=== PATIENT | male | born 1985 | race Caucasian/White ===

== ENCOUNTER → 2020-11-09 11:22 | Outpatient (BNVA) | payer OTHER, SELFPAY | PROVIDERS: Visit Provider Nurse Practitioner Family | DX: Z20.822 Contact with and (suspected) exposure to COVID-19 (principal) | CPT/HCPCS: 87635 ==

== ENCOUNTER 2025-02-07 16:15 | Emergency (ER) | payer SELFPAY ==
--- NOTE | 2025-02-07 16:19 | ECG_ITS ---
[facility] Test Date: 2025-02-07 Pat Name: Nadeem Salazar Department: Room: Gender: Male Rail Transit Operator: : 1985 Requested By: Lars Cowan Order Number: [id number] Amy MD: Juan Pablo Balderrama M.D. Measurements Intervals [place] Rate: 78 P: 67 [place]: 150 QRS: 53 QRSD: 101 T: 65 QT: 330 QTc: 376 Interpretive Statements SINUS RHYTHM No previous ECG available for comparison Electronically Signed On 02-08-2025 13:04:46 CDT by Juan Pablo Balderrama M.D. [id number]
--- NOTE | 2025-02-07 16:19 | XRR_ITS ---
PROCEDURE INFORMATION: Exam: XR Chest Exam date and time: 02/07/2025 4:34 PM Age: 39 years old Clinical indication: Pain; Angina pectoris; Additional info: Cp TECHNIQUE: Imaging protocol: Radiologic exam of the chest. Views: 1 view. COMPARISON: No relevant prior studies available. FINDINGS: Lungs: Unremarkable. No consolidation. Pleural spaces: Unremarkable. No pleural effusion. No pneumothorax. Heart/Mediastinum: Unremarkable. No cardiomegaly. Bones/joints: Unremarkable. XR/XR chest 1V portable [id number] IMPRESSION: No acute findings.
--- OUTSIDE RECORDS SUMMARY | 2025-02-07 16:20 | XMS_ITS | Encounter Summary ---
Author Organization [employer] [facility] Address [address] [place] [address] Care Team Providers Care Pcts Name Role Phone Unavailable Primary Care Provider Unavailabl e Encounter Details Date Type Department Care Team (Latest Contact Info) Description 08/12/1999 Outpatient Historical HIS [facility] Julio Elliott MD [address] [place] [phone] Acute sinusitis, unspecified (Primary Dx) Social History Tobacco Use Types Packs/Day Years Used Date Smoking Tobacco: Never Assessed Sex and Gender Information Value Date Recorded Sex Assigned at Not on file 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
--- OUTSIDE RECORDS SUMMARY | 2025-02-07 16:20 | XMS_ITS | Encounter Summary ---
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
--- OUTSIDE RECORDS SUMMARY | 2025-02-07 16:20 | XMS_ITS | Encounter Summary ---
Author Organization [facility] Address [address] [place] [address] Care Team Providers Care Otm Consultant Name Role Phone Unavailable Primary Care Provider Unavailabl e Encounter Details Date Type Department Care Team (Latest Contact Info) Description 07/08/1997 Outpatient Historical [facility] [place] [address] [place] [address] Chalo Torres MD NO ADDRESS ON FILE Contusion face/scalp/nck (Primary Dx) Social History Tobacco Use Types Packs/Day Years Used Date Smoking Tobacco: Never Assessed Sex and Gender Information Value Date Recorded Sex Assigned at Not on file 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
--- OUTSIDE RECORDS SUMMARY | 2025-02-07 16:20 | XMS_ITS | Encounter Summary ---
Author Organization [employer] [facility] Address [address] [place] [address] Care Team Providers Care Etl Developer Name Role Phone Unavailable Primary Care Provider Unavailabl e Encounter Details Date Type Department Care Team (Latest Contact Info) Description 01/18/2000 Outpatient Historical HIS [facility] Julio Elliott MD [address] [place] [phone] Other general medical examination for administrative purposes (Primary Dx) Social History Tobacco Use Types Packs/Day Years Used Date Smoking Tobacco: Never Assessed Sex and Gender Information Value Date Recorded Sex Assigned at Not on file 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
--- OUTSIDE RECORDS SUMMARY | 2025-02-07 16:20 | XMS_ITS | Encounter Summary ---
Author Organization [facility] Address [address] [place] [address] Care Team Providers Care Thermostat Maker Name Role Phone Unavailable Primary Care Provider Unavailabl e Encounter Details Date Type Department Care Team (Latest Contact Info) Description 04/25/2001 Outpatient Historical [facility] Dermatology- [facility] Priscila [address] [place] [address] Alfredito Conti MD NO ADDRESS ON FILE ACNE NEC (Primary Dx) Social History Tobacco Use Types Packs/Day Years Used Date Smoking Tobacco: Never Assessed Sex and Gender Information Value Date Recorded Sex Assigned at Not on file 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
--- OUTSIDE RECORDS SUMMARY | 2025-02-07 16:20 | XMS_ITS | Encounter Summary ---
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
--- OUTSIDE RECORDS SUMMARY | 2025-02-07 16:20 | XMS_ITS | Encounter Summary ---
Author Organization [employer] [facility] Address [address] [place] [address] Care Team Providers Care Trouble Clerk Name Role Phone Unavailable Primary Care Provider Unavailabl e Encounter Details Date Type Department Care Team (Latest Contact Info) Description 04/09/2001 Outpatient Historical HIS [facility] Julio Elliott MD [address] [place] [phone] COUGH (Primary Dx); ACUTE SINUSITIS NOS; PRURITIC DISORDER NOS Social History Tobacco Use Types Packs/Day Years Used Date Smoking Tobacco: Never Assessed Sex and Gender Information Value Date Recorded Sex Assigned at Not on file 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
--- OUTSIDE RECORDS SUMMARY | 2025-02-07 16:20 | XMS_ITS | Encounter Summary ---
Author Organization [facility] Address [address] [place] [address] Care Team Providers Care Edge Finisher Name Role Phone Unavailable Primary Care Provider Unavailabl e Encounter Details Date Type Department Care Team (Latest Contact Info) Description 02/10/1998 Outpatient Historical [facility] Pediatrics-[facility] [address] [place] [address] Chalo Torres MD NO ADDRESS ON FILE Routine medical exam (Primary Dx) Social History Tobacco Use Types Packs/Day Years Used Date Smoking Tobacco: Never Assessed Sex and Gender Information Value Date Recorded Sex Assigned at Not on file 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
--- OUTSIDE RECORDS SUMMARY | 2025-02-07 16:20 | XMS_ITS | Encounter Summary ---
Author Organization [employer] [facility] Address [address] [place] [address] Care Team Providers Care Transfer Table Operator Name Role Phone Unavailable Primary Care Provider Unavailabl e Encounter Details Date Type Department Care Team (Latest Contact Info) Description 06/07/1999 Outpatient Historical HIS [facility] Julio Elliott MD [address] [place] [phone] Other and unspecified noninfectious gastroenteritis and colitis(558.9) (Primary Dx) Social History Tobacco Use Types Packs/Day Years Used Date Smoking Tobacco: Never Assessed Sex and Gender Information Value Date Recorded Sex Assigned at Not on file 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
--- OUTSIDE RECORDS SUMMARY | 2025-02-07 16:20 | XMS_ITS | Encounter Summary ---
Author Organization [employer] [facility] Address [address] [place] [address] Care Team Providers Care Malt Specifications Control Assistant Name Role Phone Unavailable Primary Care Provider Unavailabl e Encounter Details Date Type Department Care Team (Latest Contact Info) Description 03/13/2001 Outpatient Historical HIS [facility] Julio Elliott MD [address] [place] [phone] Bronchitis, not specified as acute or chronic (Primary Dx) Social History Tobacco Use Types Packs/Day Years Used Date Smoking Tobacco: Never Assessed Sex and Gender Information Value Date Recorded Sex Assigned at Not on file Legal Sex Male 6:00 AM [facility] SHIFT LEAD Gender Identity Not on file Sexual Orientation Not on file documented as of this encounter Plan of Treatment Not on file documented as of this encounter Visit Diagnoses Diagnosis Bronchitis, not specified as acute or chronic- Primary documented in this encounter
--- OUTSIDE RECORDS SUMMARY | 2025-02-07 16:20 | XMS_ITS | Encounter Summary ---
Author Organization [employer] [facility] Address [address] [place] [address] Care Team Providers Care Bearing Inspector Name Role Phone Unavailable Primary Care Provider Unavailabl e Encounter Details Date Type Department Care Team (Latest Contact Info) Description 05/12/1999 Outpatient Historical HIS [facility] Christiano Baez NO ADDRESS ON FILE Unspecified viral infection, in conditions classified elsewhere and of unspecified site (Primary Dx); Acute upper respiratory infections of unspecified site Social History Tobacco Use Types Packs/Day Years Used Date Smoking Tobacco: Never Assessed Sex and Gender Information Value Date Recorded Sex Assigned at Not on file 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
--- OUTSIDE RECORDS SUMMARY | 2025-02-07 16:20 | XMS_ITS | Encounter Summary ---
Author Organization [facility] Address [address] [place] [address] Care Team Providers Care Logging Shovel Operator Name Role Phone Unavailable Primary Care Provider Unavailabl e Encounter Details Date Type Department Care Team (Latest Contact Info) Description 07/26/2001 Outpatient Historical [facility] Dermatology- [facility] Prisc[address] [place] [address] Alfredito Conti MD NO ADDRESS ON FILE ACNE NEC (Primary Dx) Social History Tobacco Use Types Packs/Day Years Used Date Smoking Tobacco: Never Assessed Sex and Gender Information Value Date Recorded Sex Assigned at Not on file 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
--- OUTSIDE RECORDS SUMMARY | 2025-02-07 16:20 | XMS_ITS | Encounter Summary ---
Author Organization [facility] Address [address] [place] [address] Care Team Providers Care Brass Roller Name Role Phone Unavailable Primary Care Provider Unavailabl e Encounter Details Date Type Department Care Team (Latest Contact Info) Description 09/17/1997 Outpatient Historical [facility] Pediatrics-[facility] [place] [address] [place] [address] Chalo Torres MD NO ADDRESS ON FILE Unspecified viral infection, in conditions classified elsewhere and of unspecified site (Primary Dx) Social History Tobacco Use Types Packs/Day Years Used Date Smoking Tobacco: Never Assessed Sex and Gender Information Value Date Recorded Sex Assigned at Not on file 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
--- OUTSIDE RECORDS SUMMARY | 2025-02-07 16:20 | XMS_ITS | Encounter Summary ---
Author Organization [employer] [facility] Address [address] [place] [address] Care Team Providers Care Narcotics And/Or Vice Detective Name Role Phone Unavailable Primary Care Provider Unavailabl e Encounter Details Date Type Department Care Team (Latest Contact Info) Description 01/01/1999 Outpatient Historical HIS [facility] Julio Elliott MD [address] [place] [phone] Other general medical examination for administrative purposes (Primary Dx) Social History Tobacco Use Types Packs/Day Years Used Date Smoking Tobacco: Never Assessed Sex and Gender Information Value Date Recorded Sex Assigned at Not on file 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
--- OUTSIDE RECORDS SUMMARY | 2025-02-07 16:20 | XMS_ITS | Encounter Summary ---
Author Organization [employer] [facility] Address [address] [place] [address] Care Team Providers Care Yard Supervisor Name Role Phone Unavailable Primary Care Provider Unavailabl e Encounter Details Date Type Department Care Team (Latest Contact Info) Description 06/13/2000 Outpatient Historical HIS [facility] Julio Elliott MD [address] [place] [phone] Acute pharyngitis (Primary Dx); Streptococcal sore throat Social History Tobacco Use Types Packs/Day Years Used Date Smoking Tobacco: Never Assessed Sex and Gender Information Value Date Recorded Sex Assigned at Not on file 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
--- OUTSIDE RECORDS SUMMARY | 2025-02-07 16:20 | XMS_ITS | Encounter Summary ---
Author Organization [employer] [place] [employer] [facility] Address [address] [place] [address] Care Team Providers Care Cigar Making Supervisor Name Role Phone Unavailable Primary Care Provider Unavailabl e Encounter Details Date Type Department Care Team (Latest Contact Info) Description 07/03/2001 Outpatient Historical HIS [facility] Julio Elliott MD [address] [place] [phone] OTHER HAMMER TOE (Primary Dx) Social History Tobacco Use Types Packs/Day Years Used Date Smoking Tobacco: Never Assessed Sex and Gender Information Value Date Recorded Sex Assigned at Not on file 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
--- OUTSIDE RECORDS SUMMARY | 2025-02-07 16:20 | XMS_ITS | Clinical Summary ---
Author Organization [facility] Address [address] [facility] [place] [address] Care Team Providers Care Political Research Scientist Name Role Phone Unavailable Primary Care Provider Unavailabl e Immunizations Immunization Administration Dates Next Due (M-M-R II/PRIORIX)(12 MO UP) MEASLES, MUMPS AND RUBELLA VIRUS VACCINE, 0.5 ML IM/SUBCUT 10/26/1991 (TDVAX)(7 YRS UP) TETANUS AN D DIPHTHERIA TOXOIDS, ADSORBED (2 LF OF TETANUS TOXOID AND 2 LF OF DIPHTHERIA TOXOID), 0.5ML (PF), IM 01/03/2003 Dt Dtp Dtap Vaccine 10/26/1991 Hepatitis B Vaccine 11/06/1996,05/02/1996,1995 IPV/OPV 10/26/1991 Influenza Seasonal Unspecifi ed Formulation IM 03/20/2001 Social History Tobacco Use Types Packs/Day Years Used Date Smoking Tobacco: Never Assessed Sex and Gender Information Value Date Recorded Sex Assigned at Not on file 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
--- OUTSIDE RECORDS SUMMARY | 2025-02-07 16:20 | XMS_ITS | Encounter Summary ---
Author Organization [employer] [facility] Address [address] [place] [address] Care Team Providers Care Laborer High Density Press Name Role Phone Unavailable Primary Care Provider Unavailabl e Encounter Details Date Type Department Care Team (Latest Contact Info) Description 06/07/2001 Outpatient Historical HIS [facility] Julio Elliott MD [address] [place] [phone] UNS ASTHMA WOSTATUS ASTHMATICUS (Primary Dx); BRONCHITIS NOS Social History Tobacco Use Types Packs/Day Years Used Date Smoking Tobacco: Never Assessed Sex and Gender Information Value Date Recorded Sex Assigned at Not on file 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
--- OUTSIDE RECORDS SUMMARY | 2025-02-07 16:20 | XMS_ITS | Encounter Summary ---
Author Organization [employer] [facility] Address [address] [place] [address] Care Team Providers Care International Logistics Manager Name Role Phone Unavailable Primary Care Provider Unavailabl e Encounter Details Date Type Department Care Team (Latest Contact Info) Description 03/16/2001 Outpatient Historical HIS [facility] Julio Elliott MD [address] [place] [phone] Bronchitis, not specified as acute or chronic (Primary Dx) Social History Tobacco Use Types Packs/Day Years Used Date Smoking Tobacco: Never Assessed Sex and Gender Information Value Date Recorded Sex Assigned at Not on file 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
--- OUTSIDE RECORDS SUMMARY | 2025-02-07 16:20 | XMS_ITS | Encounter Summary ---
Author Organization [employer] [facility] Address [address] [place] [address] Care Team Providers Care Cargo And Ramp Services Manager Name Role Phone Unavailable Primary Care Provider Unavailabl e Encounter Details Date Type Department Care Team (Latest Contact Info) Description 03/20/2001 Outpatient Historical HIS [facility] Julio Elliott MD [address] [place] [phone] BRONCHITIS NOS (Primary Dx); VACCINE FOR INFLUENZA Social History Tobacco Use Types Packs/Day Years Used Date Smoking Tobacco: Never Assessed Sex and Gender Information Value Date Recorded Sex Assigned at Not on file 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
--- OUTSIDE RECORDS SUMMARY | 2025-02-07 16:20 | XMS_ITS | Encounter Summary ---
Author Organization [employer] [facility] Address [address] [place] [address] Care Team Providers Care Solutions Architect Name Role Phone Unavailable Primary Care Provider Unavailabl e Encounter Details Date Type Department Care Team (Latest Contact Info) Description 04/23/2001 Outpatient Historical HIS [facility] Julio Elliott MD [address] [place] [phone] ACNE NEC (Primary Dx) Social History Tobacco Use Types Packs/Day Years Used Date Smoking Tobacco: Never Assessed Sex and Gender Information Value Date Recorded Sex Assigned at Not on file Legal Sex Male 6:00 AM BANQUET STEWARDESS Gender Identity Not on file Sexual Orientation Not on file documented as of this encounter Plan of Treatment Not on file documented as of this encounter Visit Diagnoses Diagnosis Other acne- Primary documented in this encounter
[2025-02-07 16:25] VITALS: BP 147/82; PULSE 77; RESP 14; TEMP 36.8; O2SAT 98; BMI 31.6
[2025-02-07 16:41] LABS: Hematocrit 43.3 % (37-53); Hemoglobin 14.40 g/dL (11.27-16.99); Mean Corpuscular HGB Conc 33.3 g/dL (30-55); Mean Corpuscular Hemoglobin 28.2 pg (27-33); Mean Corpuscular Volume 84.7 fl (82-101); Nucleated Red Blood Cells % 0 %; Platelet Count 207 10^3/cmm (157-399); Red Blood Count 5.11 10^6/uL (3.85-5.65); White Blood Count 7.98 10^3/uL (3.29-11.43)
[2025-02-07 16:58] LABS: Alanine Aminotransferase 30 U/L (0-41); Albumin Level 4.5 g/dL (3.5-5.2); Alkaline Phosphatase 66 U/L (40-130); Anion Gap 14.6 (5-19); Aspartate Amino Transferase 21 U/L (0-40); Blood Urea Nitrogen 13 mg/dL (6-20); Calcium 9.0 mg/dL (8.5-10.5); Carbon Dioxide 26 mmol/L (22-29); Chloride 105 mmol/L (98-107); Creatinine Clr Calc Pharmacy 162.8176; Globulin 2.3 g/dL (1.3-4.6); Glucose 125 mg/dL (65-115); Lipase 22 U/L (13-60); Osmolality Calculated 296 mOsm/kg (285-295); Potassium 3.6 mmol/L (3.5-5.1); Sodium 142 mmol/L (136-145); Total Protein 6.8 g/dL (6.6-8.7)
[2025-02-07 17:01] LABS: Troponin(5th) Baseline 9 ng/L (0-15)
[2025-02-07 17:03] LABS: INR 0.95 (0.8-1.2); Prothrombin Time 13.30 SECONDS (12.1-14.9)
--- NOTE | 2025-02-07 17:50 | W.ED.ABDPA2 ---
HPI - Abdominal Pain General: Chief Complaint: Abdominal Pain Stated Complaint: Hard to Breath chest and ribs feel tight Time Seen by Provider: 02/07/25 16:39 History of Present Illness: Patient is 39-year-old male without medical issues presented to the ED due to headache, wrapping upper abdominal pain as spasming, and his ribs feel tight with the wrapping pain. Is difficult to take a deep breath. No sick contact no fevers. Patient stated headache started this a.m., then he got in the shower and just felt like something was wrong with his abdomen. He stated he has a history of pancreatitis, however has not had alcohol intake in multiple years. Associated Symptoms: Denies chills, diarrhea, fever(s), nausea and vomiting Related Data Home Medications ?Medication ?Instructions ?Recorded ?Confirmed lxqocan-kdalgyvfbkkzn-gpsczrcy 250 2 tab PO Q6H PRN Pain 02/07/25 02/07/25 mg-250 mg-65 mg tablet (Excedrin Migraine) imsimxyk-bpwpmwdw-sadip acid 400 2 tab PO DAILY 02/07/25 02/07/25 mcg-vit K 20 mcg-lycop 300 mcg tablet Previous Rx's ?Medication ?Instructions ?Recorded ketorolac 10 mg tablet 10 mg PO Q8H PRN pain 5 days #14 02/07/25 tabs methocarbamol 750 mg tablet 750 mg PO Q8H PRN muscle spasm #30 02/07/25 tabs pantoprazole 40 mg tablet,delayed 40 mg PO DAILY #30 tabs 02/07/25 release Allergies Allergy/AdvReac Type Severity Reaction Status Date / Time No Known Allergies Allergy Verified 02/07/25 16:28 Review of Systems Const: Denies: fever(s), chills, body aches, fatigue or diaphoresis Eyes: Denies: change in vision or eye discharge ENMT: Denies: throat pain, odynophagia or hoarseness Card: Denies: chest pain, palpitations, irregular heart rhythm or swelling of feet/ankles Resp: Denies: dyspnea, productive cough, non-productive cough or wheezing GI: Denies: abdominal pain, nausea, vomiting or diarrhea : Denies: flank pain Musc: Denies: neck pain, back pain, extremity pain or extremity swelling Skin/Breast: Denies: rash or pruritus Neuro: Reports: headache(s); Denies: numbness in extremities, weakness in extremities or sensory changes PFSH ED PFSH: Medical History (Updated 02/07/25 @ 18:41 by FLO Morales) Left otitis media with spontaneous rupture of eardrum Social History (Updated 11/09/20 @ 10:27 by Diana Mosquera NP) Smoking and tobacco/nicotine status: never used tobacco/nicotine Alcohol intake: never Substance/Drug Use: never Physical Exam Const: COMMON NORMALS: no acute distress and healthy appearing HENMT: COMMON NORMALS: atraumatic, hearing grossly normal bilaterally, external ears normal, EAC's normal, TM's normal bilaterally, moist oral mucous membranes and oropharynx normal HEAD & SCALP: atraumatic EXTERNAL EAR: Yes external ears normal EXTERNAL AUDITORY CANAL: EAC's normal TYMPANIC MEMBRANE: TM's normal bilaterally THROAT: posterior oropharynx normal and tonsils normal Neck/C-Spine: COMMON NORMALS: full ROM, no lymphadenopathy, supple and no meningeal signs Lymph: LYMPHATIC: no lymphadenopathy noted Chest: COMMONS NORMALS: normal inspection of the chest and normal palpation of entire chest wall Resp: COMMON NORMALS: normal respiratory effort and clear to auscultation bilaterally AUSCULTATION: clear to auscultation bilaterally Cardio: COMMON NORMALS: regular rate, regular rhythm and No murmurs present (Cardio) RATE: regular rate RHYTHM: regular rhythm GI: COMMON NORMALS: Soft to palpation AUSCULTATION: Yes normoactive bowel sounds PALPATION: Yes Soft to palpation, Yes Tenderness to palpation present (GI) (Mild epigastric tenderness), No Guarding due to palpation present (GI) and No Rigid due to palpation : BLADDER/KIDNEY EXAM: Yes CVA tenderness on the right Back/Pelvis: GENERAL BACK: Yes CVA tenderness Extremity: COMMON NORMALS: normal to inspection, full ROM and capillary refill normal Neuro: MENINGEAL SIGNS: Yes no meningeal signs Course Vital Signs: Vital signs: Vital Signs Temperature 98.3 F 02/07/25 16:25 Pulse Rate 74 02/07/25 18:00 Respiratory Rate 14 02/07/25 16:25 Blood Pressure 109/70 02/07/25 18:00 Pulse Oximetry 95 02/07/25 18:00 MDM - Abdominal Pain Medical Decision Making Patient is a 39-year-old gentleman that had a surrounding pain in his upper abdomen. Workup was extensively negative. He did have improvement of his headache after Toradol, Norflex, and improvement of his abdomen after GI cocktail. Plan will be to do Toradol carefully sparingly outpatient by mouth, methocarbamol, with pantoprazole. Case management has been placed an order for primary care physician possible referral for EGD. Patient states understanding. Lab Data 02/07/25 16:35 02/07/25 16:35 Labs/Radiology: Radiology Impressions Chest X-Ray 02/07/25 16:19 IMPRESSION: No acute findings. Laboratory Results WBC 7.98 10^3/uL (3.29-11.43) 02/07/25 16:35 RBC 5.11 10^6/uL (3.85-5.65) 02/07/25 16:35 Hgb 14.40 g/dL (11.27-16.99) 02/07/25 16:35 Hct 43.3 % (37-53) 02/07/25 16:35 MCV 84.7 fl (82-101) 02/07/25 16:35 MCH 28.2 pg (27-33) 02/07/25 16:35 MCHC 33.3 g/dL (30-55) 02/07/25 16:35 RDW 12.5 % (12.1-15.1) 02/07/25 16:35 Plt Count 207 10^3/cmm (157-399) 02/07/25 16:35 MPV 9.8 fL (7.4-10.4) 02/07/25 16:35 Neut % (Auto) 61.9 % 02/07/25 16:35 Lymph % (Auto) 29.8 % 02/07/25 16:35 [place] % (Auto) 5.5 % 02/07/25 16:35 Eos % (Auto) 1.9 % 02/07/25 16:35 Baso % (Auto) 0.5 % 02/07/25 16:35 Neut # (Auto) 4.94 10^3/uL (1.8-7.7) 02/07/25 16:35 Lymph # (Auto) 2.4 10^3/uL (0.8-4.8) 02/07/25 16:35 [place] # (Auto) 0.4 10^3/uL (0.2-0.9) 02/07/25 16:35 Eos # (Auto) 0.2 10^3/uL (0.0-0.8) 02/07/25 16:35 Baso # (Auto) 0.0 10^3/uL (0.0-0.1) 02/07/25 16:35 Nucleated RBC % (auto) 0 % 02/07/25 16:35 Nucleated RBCs # 0.0 /100WBC 02/07/25 16:35 PT 13.30 SECONDS (12.1-14.9) 02/07/25 16:35 INR 0.95 (0.8-1.2) 02/07/25 16:35 Sodium 142 mmol/L (136-145) 02/07/25 16:35 Potassium 3.6 mmol/L (3.5-5.1) 02/07/25 16:35 Chloride 105 mmol/L (98-107) 02/07/25 16:35 Carbon Dioxide 26 mmol/L (22-29) 02/07/25 16:35 Anion Gap 14.6 (5-19) 02/07/25 16:35 BUN 13 mg/dL (6-20) 02/07/25 16:35 Creatinine 0.7 mg/dL (0.7-1.2) 02/07/25 16:35 GFR Calculation 125.5 mL/min (90-130) 02/07/25 16:35 Glucose 125 mg/dL (65-115) H 02/07/25 16:35 Calculated Osmolality 296 mOsm/kg (285-295) H 02/07/25 16:35 Calcium 9.0 mg/dL (8.5-10.5) 02/07/25 16:35 Total Bilirubin 0.5 mg/dL (0.15-1.2) 02/07/25 16:35 AST 21 U/L (0-40) 02/07/25 16:35 ALT 30 U/L (0-41) 02/07/25 16:35 Alkaline Phosphatase 66 U/L (40-130) 02/07/25 16:35 Troponin T Baseline 9 ng/L (0-15) 02/07/25 16:35 Troponin T 120 Minute 7.55 ng/L (0-15) 02/07/25 18:32 Delta Troponin T -1.45 ABS# (0-10) L 02/07/25 18:32 Total Protein 6.8 g/dL (6.6-8.7) 02/07/25 16:35 Albumin 4.5 g/dL (3.5-5.2) 02/07/25 16:35 Globulin 2.3 g/dL (1.3-4.6) 02/07/25 16:35 Lipase 22 U/L (13-60) 02/07/25 16:35 Urine Color Yellow (Yellow) 02/07/25 17:55 Urine Appearance Turbid (CLEAR) A 02/07/25 17:55 Urine pH 7.0 (5-7) 02/07/25 17:55 Ur Specific [place] 1.023 (1.005-1.030) 02/07/25 17:55 Urine Protein Negative (Negative) 02/07/25 17:55 Urine Glucose (UA) Negative (Normal) 02/07/25 17:55 Urine Ketones Trace (Negative) 02/07/25 17:55 Urine Blood Negative (Negative) 02/07/25 17:55 Urine Nitrate Negative (Negative) 02/07/25 17:55 Urine Bilirubin Negative (Negative) 02/07/25 17:55 Urine Urobilinogen 1.0 mg/dL (Negative) 02/07/25 17:55 Ur Leukocyte Esterase Negative (Negative) 02/07/25 17:55 Urine RBC 0-2 /hpf (0-2) 02/07/25 17:55 Urine WBC 0-5 /hpf (0-5) 02/07/25 17:55 Ur Squamous Epith Cells 0-5 /hpf (0-5) 02/07/25 17:55 Amorphous Sediment Not Reportable 02/07/25 17:55 Urine Bacteria None seen /hpf (NONE) 02/07/25 17:55 Hyaline Casts 2.87 /lpf 02/07/25 17:55 All radiology interpretation(s) finalized by discharge EKG Data EKG 1: Interpretation: nsr, no st elevation, qtc 363 EKG 2: Interpretation: Normal sinus rhythm, normal axis Discharge Plan Discharge Patient Disposition: Home Clinical Impression: Gastritis Qualifiers: Gastritis type: unspecified gastritis Chronicity: acute Gastritis bleeding: without bleeding Qualified Code(s): K29.00 - Acute gastritis without bleeding Headache Qualifiers: Headache type: tension-type Headache chronicity pattern: acute headache Intractability: not intractable Qualified Code(s): G44.209 - Tension-type headache, unspecified, not intractable Condition: Stable Prescriptions: New ketorolac 10 mg tablet 10 mg PO Q8H PRN (Reason: pain) 5 Days Qty: 14 0RF methocarbamol 750 mg tablet 750 mg PO Q8H PRN (Reason: muscle spasm) Qty: 30 0RF pantoprazole 40 mg tablet,delayed release (DR/EC) 40 mg PO DAILY Qty: 30 0RF No Action nuvqzjd-hfhruajnjmukv-dqtbwiyt [Excedrin Migraine] 250-250-65 mg Tablet 2 tab PO Q6H PRN (Reason: Pain) Men's Multivitamin 400-20-300 mcg Tablet 2 tab PO DAILY Discharge Orders: Discharge ED (Routine); Ordered 02/07/25 Ordered By: Shahnaz Al Discharge Diet: Usual diet Discharge Activity: Resume usual activity Patient Instructions: Gastritis (ED), Acute Headache (ED), Patient Portal & Edmundo Instructions Activity Restrictions/Additional Instructions: -Case management will contact you for follow-up with a primary care physician ? Medication for your abdomen, headache and muscle skeletal tenderness has been sent to the pharmacy. Utilize pantoprazole daily consistently, the ketorolac caution with abdominal discomfort associated with increasing gastritis, and methocarbamol/Robaxin is for muscle spasms. Methocarbamol/Robaxin does cause ED, so caution on this medication ? Return to ED with worsening abdominal pain, if nausea, vomiting develops, worsening headache, or fever greater 100.4 ?F Stand Alone Forms: Work/School Release Print Language: Yakut Coding Level of Care Code ED Painting Manager for Nina Delgado
[2025-02-07] MEDS: orphenadrine 30 mg/mL Inj 2 mL 60 MG IM (17:58)
[2025-02-07 18:00] VITALS: BP 109/70; PULSE 74; O2SAT 95
[2025-02-07 18:05] LABS: Glucose Urine UA Negative (Normal); Nitrate Urine Negative (Negative); Specific Gravity, Urine 1.023 (1.005-1.030)
[2025-02-07 18:10] LABS: Add Urine Microscopic? YES
[2025-02-07] MEDS: lidocaine 2% viscous 15 ML, aluminum-mag hydrox-simethicon 30 ML, sucralfate oral liq 1 GM PO (18:16)
--- NOTE | 2025-02-07 18:26 | ECG_ITS ---
[facility] Test Date: 2025-02-07 Pat Name: Nadeem Salazar Department: Room: Gender: Male [employer] Senior Manager: : 1985 Requested By: Lars Cowan Order Number: [id number] Amy MD: Juan Pablo Balderrama M.D. Measurements Intervals [place] Rate: 60 P: 55 RI: 156 QRS: 30 QRSD: 102 T: 38 QT: 368 QTc: 368 Interpretive Statements SINUS RHYTHM POSSIBLE RIGHT VENTRICULAR CONDUCTION DELAY [RSR (QR) IN V1/V2] Compared to ECG 02/07/2025 16:23:54 No significant changes Electronically Signed On 02-08-2025 13:16:25 CDT by Juan Pablo Balderrama M.D. [email or web address]
[2025-02-07 18:58] LABS: Troponin 5 2HR 7.55 ng/L (0-15)
[2025-02-07 19:13] LABS: Troponin 5 2HR Delta -1.45 ABS# (0-10)
--- NOTE | 2025-02-10 07:27 | DCPLANNER ---
messaged wpfm for er f/u
== END 2025-02-07 18:51 | disposition home or self-care (01) ==
PROVIDERS: Emergency Medicine; Emergency Provider Physician Assistant
DX: K29.00 Acute gastritis without bleeding (principal); G44.209 Tension-type headache, unspecified, not intractable
CPT/HCPCS: 36415; 71045; 80053; 81001; 83690; 84484; 85025; 85610; 93005; 96372; 99285; J1885; J2360; J9999